=== PATIENT | male | born 1975 | race Caucasian/White ===

== ENCOUNTER 2016-09-12 18:22 | Emergency (ER) | payer SELFPAY ==
[2016-09-12 18:28] VITALS: BP 164/102; BMI 29.2
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
[2016-09-12] MEDS ORDERED: ADACEL TDaP IM ONE ×2 (19:43→19:45)
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
[2016-09-12] MEDS ORDERED: ULTRAM PO ONE (20:57)
[2016-09-12] MEDS ORDERED: MOTRIN TAB 800 MG PO ONE ×2 (20:59→21:03)
[2016-09-12] MEDS ORDERED: ULTRAM ONE (21:04)
== END 2016-09-12 21:08 | disposition home or self-care (01) ==
LOC: ER 18:35
DX: S80.01XA Contusion of right knee, initial encounter (principal); S83.91XA Sprain of unspecified site of right knee, initial encounter; V86.69XA Passenger of other special all-terrain or other off-road motor vehicle injured in nontraffic accident, initial encounter
CPT/HCPCS: 73560; 90471; 99282; 99283

== ENCOUNTER 2017-11-20 14:55 | Observation (INO) ==
[2017-11-20 16:15] LABS: BASOPHILS # (AUTO) 0.1 X10^3/uL (0.0-0.1); BASOPHILS % (AUTO) 0.8 % (0.2-1.0); EOSINOPHILS # (AUTO) 0.3 x10^3/uL (0.0-0.2); EOSINOPHILS % (AUTO) 2.9 % (0.9-2.9); HEMATOCRIT 43.8 % (42.0-54.0); HEMOGLOBIN 15.4 g/dL (13.5-18.0); LYMPHOCYTES # (AUTO) 2.1 X10^3/uL (1.3-2.9); LYMPHOCYTES % (AUTO) 21.3 % (21.0-51.0); MEAN CORPUSCULAR HEMOGLOBIN 31.6 pg (27.0-34.0); MEAN CORPUSCULAR HGB CONC 35.1 g/dL (33.0-35.0); MONOCYTES # (AUTO) 1.3 x10^3/uL (0.3-0.8); MONOCYTES % (AUTO) 12.6 % (0.0-13.0); NEUTROPHILS # (AUTO) 6.3 x10^3/uL (2.2-4.8); NEUTROPHILS % (AUTO) 62.4 % (42.0-75.0); PLATELET COUNT 335 X10^3/uL (150.0-450.0); RED BLOOD COUNT 4.87 X10^6/uL (4.7-6.0); RED CELL DISTRIBUTION WIDTH 13.4 % (11.6-16.5); WHITE BLOOD COUNT 10.1 X10^3/uL (3.6-10.0)
[2017-11-20] MEDS ORDERED: NS 100 ML IV 100 ML IV ONE (16:24)
[2017-11-20 16:28] LABS: ALANINE AMINOTRANSFERASE 84 Units/L (12-78); ALBUMIN 3.6 g/dL (3.4-5.0); ALKALINE PHOSPHATASE 80 Units/L (46-116); ASPARTATE AMINO TRANSFERASE 34 Units/L (15-37); BLOOD UREA NITROGEN 15 mg/dL (7-18); CALCIUM 10.1 mg/dL (8.5-10.1); CARBON DIOXIDE 28.6 mmol/L (21-32); CHLORIDE 101 mmol/L (98-107); SODIUM 140 mmol/L (136-145); TOTAL PROTEIN 8.9 g/dL (6.4-8.2); eGFR NON BLACK RACES > 60 (>60)
[2017-11-20] MEDS: NS 1000 ML 1,000 ML IV SCH (16:42)
[2017-11-20] MEDS: ROCEPHIN 1 GRAM IV PREMIX 1 G/50 ML IV.SOLN. IV SCH (16:42)
[2017-11-20] MEDS ORDERED: MOTRIN TAB 800 MG PO PRN (17:04)
[2017-11-20 17:32] LABS: BILIRUBIN,URINE NEGATIVE (NEGATIVE); BLOOD/HEMOGLOBIN,URINE 1+ (NEGATIVE); GLUCOSE, URINE NEGATIVE (NEGATIVE); KETONES,URINE NEGATIVE (NEGATIVE); LEUKOCYTE ESTERASE ,URINE NEGATIVE (NEGATIVE); NITRITES,URINE NEGATIVE (NEGATIVE); PROTEIN,URINE 3+ (NEGATIVE); UROBILINOGEN,URINE 1+ (NORMAL)
[2017-11-20 17:44] LABS: AMORPHOUS SEDIMENT,UR 1+ /HPF (NEGATIVE); APPEARANCE,URINE SLIGHTLY HAZY (CLEAR); BACTERIA,URINE TRACE /HPF (NEGATIVE); COLOR,URINE YELLOW (YELLOW); RBC,URINE 0-2 /HPF (NONE SEEN); SQUAMOUS EPITHELIAL CELL,UR RARE /HPF (NEGATIVE)
--- NOTE | 2017-11-20 17:44 | CT ---
CT SINUSES CLINICAL HISTORY: 42-year-old male with tonsillitis and headache with swollen throat. COMPARISON: None. TECHNIQUE: Multiple, noncontrast axial CT images of the paranasal sinuses were obtained and reformatt ed in the axial, sagittal, and coronal planes. The resulting images were processed with soft tissue and bone algorithm. FINDINGS: Limited intracranial evaluation demonstrates no acute abnormalities. The orbits and globes are within normal limits. The frontal sinuses and frontal recesses are clear. The anterior and building tech ior ethmoidal air cells are clear. The sphenoid sinuses are clear. The intersinus septum just to th e right of midline with a left dominant sphenoid sinus. The sphenoid ostia and sphenoethmoidal recess es are clear. Partially imaged mastoid air cells are clear. Mastoid antrum is clear. Tympanic cavitie s are clear. Skull base foramina are normal in appearance. Maxillary sinuses are clear. The maxillary ostia, infundibula, and middle meati are patent. No fluid levels are identified. Small volume efferv escent mucosal secretions within the right inferior meatus with remaining nasal passages clear. Nasop harynx is normal. [place] tonsils are prominent bilaterally without discrete fluid collection, consistent with history . IMPRESSION: 1. No evidence of acute or chronic sinusitis. 2. Demonstrable patency of the frontal recesses, sphenoethmoidal recesses, and ostiomeatal units. 3. Prominent palatine tonsils, consistent with history, without discrete fluid collection. Reported By:
--- NOTE | 2017-11-20 18:24 | CT ---
CT NECK WITH IV CONTRAST CLINICAL INDICATION: Tonsillitis. Rule out peritonsillar abscess. TECHNIQUE: Multiple-row detector helical CT examination of the neck with IV contrast per standard de partmental protocol.Dose reduction techniques including Automated Exposure Control (AEC) and adjustme nt of mA and kV were utlized. COMPARISON: None. FINDINGS: Asymmetric edema of the left palatine tonsil. No evidence of peritonsillar abscess or significant ef fusion. Reactive bilateral cervical adenopathy. The parotid and submandibular glands appear within normal limits. The thyroid gland is normal in size without focal abnormality. Evaluation of the visualized portions of brain parenchyma and orbits demonstrates no abnormality. The visualized paranasal sinuses are predominantly clear. The tympanomastoid cavities are unopacified. T here is normal intravascular enhancement. Limited evaluation of the lung apices demonstrates no abnormality. The visualized osseous structures are within normal limits. Following administration of intravenous contrast material, there is no abnormal enhancement. IMPRESSION: 1. Findings consistent with tonsillitis. No evidence of peritonsillar abscess. Reported By:
[2017-11-20] MEDS ORDERED: CHLORASEPTIC SPRAY MT PRN (19:35)
[2017-11-20 19:57] VITALS: BMI 29.2
--- NOTE | 2017-11-20 22:22 | DR.H&P ---
H&P - History & Physical for Day of: H&P Date: 11/20/17 - Chief Complaint Chief Complaint: Sore throat, inability to eat or drink since weekend - History of Present Illness History of Present Illness: The patient is a 42yo WM who presented to office with complaint of sore throat. States he has been unable to drink or eat due to pain. States he feels weak and is clammy. States he was seen in the ED this weekend and started on Amoxil 500mg QID. States he can barely swollow capsules. Has labs which revealed a WBC of 20K. States he is having fever still. Has been gagrling with warm, salty water with no relief. - Past Surgical History Surgical History: Appendectomy - Social History Does patient currently use any type of tobacco product: No Have you used tobacco products in the last 12 months: Yes Type of Tobacco Use: None Does any household member use tobacco: No Alcohol Use: None - Medications Home Medications: No Known Drug Allergies Allergy (Verified 11/18/17 18:12) - Review of Systems Constitutional: Fever, Chills, Sweats, Weakness, Malaise Eyes: No Symptoms Reported ENT: Throat Pain, Throat Swelling Respiratory: No Symptoms Reported Cardiovascular: No Symptoms Reported Gastrointestinal: No Symptoms Reported Genitourinary: No Symptoms Reported Musculoskeletal: No Symptoms Reported Skin: No Symptoms Reported Neurological: No Symptoms Reported - Physical Exam Vital Signs: Temperature 97.7 F Pulse Rate [Right Brachial] 84 Respiratory Rate 20 Blood Pressure [Left Arm] 162/90 Blood Pressure 135/62 Oriented: Normal Eyes: Normal Ear: Normal Nose: Normal Throat: Red, Exudate, Dry, Other (Tonsils 3+) Respiratory: Clear Throughout Cardiovascular: Normal : Normal Auscultation: Bowel Sounds: Normal Palpation: Normal Tenderness: Normal Skin: Normal Musculoskeletal: Normal Psychiatric: Normal Mood Description: Calm Affect: Normal Speech Pattern: Clear - Assessment/Plan (1) Acute bacterial tonsillitis Status: Acute Plan: Rocephin IV, CT soft tissue neck (2) Leukocytosis Status: Acute Plan: CBC, Rocephin (3) Dehydration Status: Acute Plan: NS 125ml/hr, CMP. - Allergies Allergies/Adverse Reactions: Allergies Allergy/AdvReac Type Severity Reaction Status Date / Time No Known Drug Allergies Allergy Verified 11/18/17 18:12
[2017-11-21] MEDS: NS 1000 ML 1,000 ML IV SCH ×2 (00:42→08:38)
[2017-11-21 05:23] LABS: BASOPHILS # (AUTO) 0.1 X10^3/uL (0.0-0.1); BASOPHILS % (AUTO) 0.8 % (0.2-1.0); EOSINOPHILS # (AUTO) 0.3 x10^3/uL (0.0-0.2); EOSINOPHILS % (AUTO) 4.3 % (0.9-2.9); HEMATOCRIT 36.9 % (42.0-54.0); HEMOGLOBIN 13.1 g/dL (13.5-18.0); LYMPHOCYTES # (AUTO) 2.3 X10^3/uL (1.3-2.9); LYMPHOCYTES % (AUTO) 29.9 % (21.0-51.0); MEAN CORPUSCULAR HGB CONC 35.5 g/dL (33.0-35.0); MEAN CORPUSCULAR VOLUME 90.1 fL (80.0-100.0); MEAN PLATELET VOLUME 7.8 fL (7.4-11.0); MONOCYTES # (AUTO) 0.7 x10^3/uL (0.3-0.8); NEUTROPHILS # (AUTO) 4.4 x10^3/uL (2.2-4.8); PLATELET COUNT 297 X10^3/uL (150.0-450.0); RED CELL DISTRIBUTION WIDTH 13.3 % (11.6-16.5); WHITE BLOOD COUNT 7.8 X10^3/uL (3.6-10.0)
[2017-11-21 05:25] LABS: ALANINE AMINOTRANSFERASE 88 Units/L (12-78); ALBUMIN 2.8 g/dL (3.4-5.0); ALKALINE PHOSPHATASE 68 Units/L (46-116); ASPARTATE AMINO TRANSFERASE 42 Units/L (15-37); BLOOD UREA NITROGEN 16 mg/dL (7-18); CALCIUM 8.7 mg/dL (8.5-10.1); CARBON DIOXIDE 26.4 mmol/L (21-32); CHLORIDE 106 mmol/L (98-107); COR CA(FOR HYPOALB) 9.7 mg/dL (8.5-10.1); CREATININE 0.86 mg/dL (0.70-1.30); SODIUM 141 mmol/L (136-145); TOTAL PROTEIN 7.1 g/dL (6.4-8.2); eGFR NON BLACK RACES > 60 (>60)
[2017-11-21] MEDS ORDERED: NS 100 ML IV + SPIKE MINIBAG* 100 ML IV ONE (08:34)
[2017-11-21] MEDS ORDERED: ROCEPHIN VIAL 1 GRAM ONE (08:35)
[2017-11-21] MEDS: ROCEPHIN 1 GRAM IV PREMIX 1 G/50 ML IV.SOLN. IV SCH (08:38)
[2017-11-21] MEDS ORDERED: CLARITIN PO SCH (09:00)
[2017-11-21 12:27] VITALS: BP 142/92
--- NOTE | 2017-11-26 00:37 | PCM.DCPLAN ---
Discharge Summary - Admission Date Date of Admission: 11/20/17 - Discharge Date Discharge Date: 11/21/17 - Admission Diagnoses (1) Acute bacterial tonsillitis Status: Acute (2) Dehydration Status: Acute (3) Leukocytosis Status: Acute (4) Pharyngitis, acute Status: Acute - Discharge Diagnoses Discharge Diagnosis: same as admission diagnosis - Discharge Medications Discharge Medications: Prescriptions: - Hospital Course Vital Signs: Temperature 98.2 F Pulse Rate [Right Brachial] 65 Respiratory Rate 18 Blood Pressure [Left Arm] 142/92 Blood Pressure 135/62 O2 Sat by Pulse Oximetry 96 Latest Lab Results: Laboratory Last Values WBC 7.8 X10^3/uL (3.6-10.0) 11/21/17 04:59 RBC 4.10 X10^6/uL (4.7-6.0) L 11/21/17 04:59 Hgb 13.1 g/dL (13.5-18.0) L D 11/21/17 04:59 Hct 36.9 % (42.0-54.0) L 11/21/17 04:59 MCV 90.1 fL (80.0-100.0) 11/21/17 04:59 MCH 32.0 pg (27.0-34.0) 11/21/17 04:59 MCHC 35.5 g/dL (33.0-35.0) H 11/21/17 04:59 RDW 13.3 % (11.6-16.5) 11/21/17 04:59 Plt Count 297 X10^3/uL (150.0-450.0) 11/21/17 04:59 MPV 7.8 fL (7.4-11.0) 11/21/17 04:59 Neut % (Auto) 56.0 % (42.0-75.0) 11/21/17 04:59 Lymph % (Auto) 29.9 % (21.0-51.0) 11/21/17 04:59 [place] % (Auto) 9.0 % (0.0-13.0) 11/21/17 04:59 Eos % (Auto) 4.3 % (0.9-2.9) H 11/21/17 04:59 Baso % (Auto) 0.8 % (0.2-1.0) 11/21/17 04:59 Neut # (Auto) 4.4 x10^3/uL (2.2-4.8) 11/21/17 04:59 Lymph # (Auto) 2.3 X10^3/uL (1.3-2.9) 11/21/17 04:59 [place] # (Auto) 0.7 x10^3/uL (0.3-0.8) 11/21/17 04:59 Eos # (Auto) 0.3 x10^3/uL (0.0-0.2) H 11/21/17 04:59 Baso # (Auto) 0.1 X10^3/uL (0.0-0.1) 11/21/17 04:59 Absolute Nucleated RBC 0.0 /100WBC 11/21/17 04:59 Sodium 141 mmol/L (136-145) 11/21/17 04:59 Corrected Sodium TNP 11/21/17 04:59 Potassium 3.9 mmol/L (3.5-5.1) 11/21/17 04:59 Chloride 106 mmol/L (98-107) 11/21/17 04:59 Carbon Dioxide 26.4 mmol/L (21-32) 11/21/17 04:59 BUN 16 mg/dL (7-18) 11/21/17 04:59 Creatinine 0.86 mg/dL (0.70-1.30) 11/21/17 04:59 Est GFR (MDRD) Af Amer > 60 (>60) 11/21/17 04:59 Est GFR (MDRD) Non-Af > 60 (>60) 11/21/17 04:59 Glucose 105 mg/dL (65-99) H 11/21/17 04:59 Lactic Acid 0.7 mmol/L (0.4-2.0) 11/20/17 16:02 Calcium 8.7 mg/dL (8.5-10.1) 11/21/17 04:59 Corrected Calcium 9.7 mg/dL (8.5-10.1) 11/21/17 04:59 Total Bilirubin 0.20 mg/dL (0.2-1.0) 11/21/17 04:59 AST 42 Units/L (15-37) H 11/21/17 04:59 ALT 88 Units/L (12-78) H 11/21/17 04:59 Alkaline Phosphatase 68 Units/L (46-116) 11/21/17 04:59 Total Protein 7.1 g/dL (6.4-8.2) 11/21/17 04:59 Albumin 2.8 g/dL (3.4-5.0) L 11/21/17 04:59 Globulin 4.3 g/dL (2.5-4.5) 11/21/17 04:59 Albumin/Globulin Ratio 0.7 Ratio (1.1-2.1) L 11/21/17 04:59 Specimen Type Clean catch urine 11/20/17 17:22 Urine Color Yellow (YELLOW) 11/20/17 17:22 Urine Appearance Slightly hazy (CLEAR) 11/20/17 17:22 Urine pH 5.0 (5.0 - 8.0) 11/20/17 17:22 Ur Specific [place] 1.010 (1.000-1.030) 11/20/17 17:22 Urine Protein 3+ (NEGATIVE) 11/20/17 17:22 Urine Glucose (UA) Negative (NEGATIVE) 11/20/17 17:22 Urine Ketones Negative (NEGATIVE) 11/20/17 17:22 Urine Occult Blood 1+ (NEGATIVE) 11/20/17 17:22 Urine Nitrite Negative (NEGATIVE) 11/20/17 17:22 Urine Bilirubin Negative (NEGATIVE) 11/20/17 17:22 Urine Urobilinogen 1+ (NORMAL) 11/20/17 17:22 Ur Leukocyte Esterase Negative (NEGATIVE) 11/20/17 17:22 Urine RBC 0-2 /HPF (NONE SEEN) 11/20/17 17:22 Urine WBC None seen /HPF (NONE SEEN) 11/20/17 17:22 Ur Squamous Epith Cells Rare /HPF (NEGATIVE) 11/20/17 17:22 Amorphous Sediment 1+ /HPF (NEGATIVE) 11/20/17 17:22 Urine Bacteria Trace /HPF (NEGATIVE) 11/20/17 17:22 Ur Culture Indicated? No/not indicated 11/20/17 17:22 Hospital Course: he patient is a 42yo WM who presented to office with complaint of sore throat. States he has been unable to drink or eat due to pain. States he feels weak and is clammy. States he was seen in the ED this weekend and started on Amoxil 500mg QID. States he can barely swallow capsules. Has labs which revealed a WBC of 20K. States he is having fever still. Has been gargling with warm, salty water with no relief. Patient was given IV Rocephin. CT did not reveal abscess. Did have improvement with hydration. Discharged home to be followed in op setting. - Discharge Plan Disposition: 01 HOME, SELF-CARE Condition: Stable - Follow ups/Referrals Follow ups/Referrals: MYLENE RO [Nurse Practitioner] - 11/29/17 2:45 pm - Instructions Instructions: Tonsillitis, [id number]-[id number], Antibiotic Medicine, Adult, Easy-to- Read, Hand Washing, [id number] Forms: Patient Portal
== END 2017-11-21 14:30 | disposition home or self-care (01) ==
LOC: MED/SURG
PROVIDERS: ADMIT Internal Medicine; ATTEND Internal Medicine
DX: B96.89 Other specified bacterial agents as the cause of diseases classified elsewhere; D72.828 Other elevated white blood cell count; E86.0 Dehydration; J02.9 Acute pharyngitis, unspecified
CPT/HCPCS: 36415; 70486; 70491; 80053; 81001; 83605; 85025; 87040; A4216; A4222; G0378; J0696; J7030; J7050